=== PATIENT | male | born 1980 | race African-American/Black ===

== ENCOUNTER 2018-04-25 19:15 | Emergency (ER) | payer OTHER ==
[~2018-04-25] VITALS: Ht 185.4 cm; Wt 105.2 kg
[2018-04-25] MEDS ORDERED: TETANUS/DIPHTHERIA TOX ADULT 0.5 ML SYR IM ONE (20:00)
--- NOTE | 2018-04-25 20:25 | Diagnostic Imaging Report ---
History: Fall at work Comparison studies: None Technique: Axial images were obtained from the skull base to the vertex. Coronal and sagittal reconstructions obtained from the axial data. Dose modulation, iterative reconstruction, and/or weight based adjustment of the mA/kV was utilized to reduce the radiation dose to as low as reasonably achievable. Findings: Scalp/skull: No abnormalities. No fractures, blastic or lytic lesions. Extra-axial spaces: No masses. No fluid collections. Brain sulci: Appropriate for age. Ventricles: Normal in size and configuration. No hydrocephalus. Parenchyma: No abnormal densities. No masses, hemorrhage, acute or chronic cortical vascular insults. Sellar/suprasellar region: No abnormalities Craniocervical junction: Patent foramen magnum. No Chiari one malformation. IMPRESSION: No abnormalities. Signed by: Dr. Gaurang Polo M.D. on 04/25/2018 8:22 PM
--- NOTE | 2018-04-25 20:31 | Diagnostic Imaging Report ---
History: Fall at work Comparison studies: None Technique: Axial images were obtained through the cervical region.. Coronal and sagittal images reconstructed from the axial data. Dose modulation, iterative reconstruction, and/or weight based adjustment of the mA/kV was utilized to reduce the radiation dose to as low as reasonably achievable. Intravenous contrast: None Findings: Fractures: None. Soft tissues: No gross abnormalities. Atlantoaxial articulation: Intact. Alignment: Straightening of the usual lordosis is probably positional. No scoliosis. Cervicomedullary junction: No abnormalities. The foramen magnum is patent. Vertebrae: No infection or neoplasm. 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 No acute abnormalities. 2. Cannot adequately evaluate for ligament, spinal cord and or vascular abnormalities. 3. Mild congenitally stenotic spinal canal from C3 to C7 Signed by: Dr. Gaurang Polo M.D. on 04/25/2018 8:27 PM
--- NOTE | 2018-04-25 21:18 | Diagnostic Imaging Report ---
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 Probable pelvic digit. No acute fracture or dislocation. Impression: No acute bony abnormality Signed by: Dr Eliane aMrtin MD on 04/25/2018 9:15 PM
--- NOTE | 2018-04-25 21:31 | Diagnostic Imaging Report ---
HAND 3+ VIEWS RIGHT, WRIST COMPLETE RIGHT, FOREARM RIGHT 2 VIEW Comparison: None Clinical history: Status post fall with right wrist pain Findings: Right forearm, wrist and hand: Slightly comminuted intra-articular fracture of the distal radius with slight apex dorsal angulation. Mildly displaced ulnar styloid fracture. Associated soft tissue swelling. Impression: Comminuted intra-articular distal radial fracture and ulnar styloid fracture. Signed by: Dr Eliane Martin MD on 04/25/2018 9:28 PM
[2018-04-25 22:16] VITALS: BP 136/90
== END 2018-04-25 22:23 | disposition home or self-care (01) ==
LOC: ER 19:15
DX: S00.83XA Contusion of other part of head, initial encounter (principal); S01.81XA Laceration without foreign body of other part of head, initial encounter; S52.351A Displaced comminuted fracture of shaft of radius, right arm, initial encounter for closed fracture; S52.611A Displaced fracture of right ulna styloid process, initial encounter for closed fracture; W11.XXXA Fall on and from ladder, initial encounter; Y99.0 Civilian activity done for income or pay
CPT/HCPCS: 70450; 72125; 90714; 99284